=== PATIENT | female | born 1945 | race Caucasian/White ===

== ENCOUNTER 2016-07-12 09:33 | Emergency (ER) | payer MEDICARE ==
[~2016-07-12 09:33] MED LIST: HYDR-3533 PO; LACT20SO4 PO; OXYC-103 PO; ZOFR8TAB4 PO
[2016-07-12 09:44] VITALS: BP 146/78; PULSE 84; RESP 17; TEMP 98.5; O2SAT 98
[2016-07-12] MEDS ORDERED: HYDR1SOL3 PO (09:50)
[2016-07-12] MEDS ORDERED: GABA300C5 PO (09:50)
[2016-07-12 09:52] VITALS: O2SAT 98
[2016-07-12 09:55] VITALS: BP_SYST 107; BP_SYST 118; BP_DIAS 66; BP_DIAS 72
[2016-07-12 09:59] LABS: BASOPHIL % 0.3 % (0.0-2.0); EOSINOPHIL # 0.3 TH/MM3 (0-0.4); EOSINOPHIL % 3.1 % (0.0-4.0); HEMATOCRIT 39.6 % (35.0-46.0); HEMO FLAGS DIFF FINAL; LYMPH % 27.1 % (9.0-44.0); LYMPHOCYTE # 2.9 TH/MM3 (1.0-4.8); MEAN CORPUSCULAR HEMOGLOBIN 31.1 PG (27.0-34.0); MEAN CORPUSCULAR HGB CONC 33.1 % (32.0-36.0); MONO % 5.1 % (0.0-8.0); NEUT % 64.4 % (16.0-70.0); PLATELET COUNT 323 TH/MM3 (150-450); RED BLOOD COUNT 4.21 MIL/MM3 (4.00-5.30); RED CELL DISTRIBUTION WIDTH 13.3 % (11.6-17.2); WHITE BLOOD COUNT 10.7 TH/MM3 (4.0-11.0)
[2016-07-12] MEDS ORDERED: SODIUM CHLORIDE 0.9% FLUSH 5 ML FLUSH IVF PRN (10:00)
[2016-07-12 10:12] LABS: APTT (PATIENT) 25.7 SEC (24.3-30.1); PROTHROMBIN TIME - PATIENT 10.5 SEC (9.8-11.6)
[2016-07-12 10:15] LABS: BICARBONATE 28.7 MEQ/L (21.0-32.0); MAGNESIUM 2.3 MG/DL (1.5-2.5)
--- NOTE | 2016-07-12 10:15 | RADHPO ---
EXAM DATE/TIME: 07/12/2016 09:56 [facility] COMPARISON: [id number] PLCMT, POWERPORT, W US, RIGHT, June 28, 2015, 8:52. CT SIMULATION, June 08, 2015 , 15:44. CHEST SINGLE AP, June 01, 2015, 12:36. INDICATIONS : Chest pain. MEDICAL HISTORY : Carcinoma, lung. Carcinoma, bladder. Gastroesophageal reflux disease. Hiatial hernia. Chemotherap y. SURGICAL HISTORY : Hysterectomy. Infusaport. Total left shoulder. Bladder tumor removal. ENCOUNTER: Initial ACUITY: 1 day PAIN SCORE: 6/10 LOCATION: chest FINDINGS: AP upright portable view of the chest at demonstrates a stable appearance of a right-sided central li ne. There has been interval total left shoulder arthroplasty. The lungs are adequately inflated without evidence of pneumothorax. There are persistent rounded mass is identified in the right lower lung and left upper lung. The exam appears grossly unchanged as com pared to the exam of June 28, 2015. No acute abnormality noted. CONCLUSION: Bilateral lung masses, no evidence of acute abnormality within the thorax. Alena Strickland MD on July 12, 2016 at 10:12 Board Certified Radiologist. This report was verified electronically.
[2016-07-12 10:16] LABS: ANION GAP 8 MEQ/L (5-15); BLOOD UREA NITROGEN 14 MG/DL (7-18); CHLORIDE 102 MEQ/L (98-107); POTASSIUM 3.7 MEQ/L (3.5-5.1); SODIUM (NA) 139 MEQ/L (136-145)
[2016-07-12 10:18] LABS: GLOMERULAR FILTRATION RATE 82 ML/MIN (>89)
[2016-07-12 10:20] LABS: ALT (GPT) 34 U/L (10-53); TOTAL BILIRUBIN ADULT 0.5 MG/DL (0.2-1.0)
[2016-07-12 10:21] LABS: ALKALINE PHOSPHATASE 112 U/L (45-117)
--- NOTE | 2016-07-12 10:22 | PD ---
HPI Chief Complaint: Chest Pain Time Seen by Provider: 09:37 Travel History International Travel<30 days: No Contact w/Intl Traveler<30days: No Traveled to known affect area: No History of Present Illness HPI 71-year-old female presents with central sharp chest pain that started while she was vacuuming shortly prior to arrival. She states that it improved some at rest but is still present. She states she currently is getting chemotherapy and last got it 1 week ago Sunday. She states that 2 weeks ago she had a bacterial infection and that when they checked an x-ray at that time she also had increasing size of her tumor so her next chemotherapy they're going to adjust. She states Dr. Brown's her oncologist. She states the cancer originally was in her bladder and has now spread to her lung and shoulder. She denies other metastases disease that she is aware of. She denies any current symptoms other than chronic cough. Quality pain is sharp. Severity is moderate. Pain is worse with movement. She denies other modifying factors. PFSH Past Medical History Cancer: Yes (bladder/ LUNGS TUMORS) Cardiovascular Problems: No Chemotherapy: Yes (LAST SUNDAY) Diabetes: No Diminished Hearing: No Endocrine: No Gastrointestinal Disorders: No GERD: Yes Genitourinary: Yes (bladder tumor 2013 remission) Hepatitis: No Hiatal Hernia: Yes Hypertension: No Immune Disorder: No Implanted Vascular Access Dvce: Yes (PORT) Musculoskeletal: No Neurologic: No Psychiatric: No Reproductive: No Respiratory: No Immunizations Current: No Thyroid Disease: No Tetanus Vaccination: > 5 Years Influenza Vaccination: No Past Surgical History Abdominal Surgery: No AICD: No Cardiac Surgery: No Ear Surgery: No Endocrine Surgery: No Eye Surgery: No Genitourinary Surgery: Yes (bladder tumor removal) Gynecologic Surgery: Yes (hysterectomy 1977) Hysterectomy: Yes Joint Replacement: Yes (LEFT SHOULDER RODS) Neurologic Surgery: No Oral Surgery: No Pacemaker: No Thoracic Surgery: No Other Surgery: Yes (tumors from bladder removed) Social History Alcohol Use: No Tobacco Use: No Substance Use: No Allergies-Medications (Allergen,Severity, Reaction): Coded Allergies: Sulfa (Verified Adverse Reaction, Intermediate, NAUSEA, 07/12/16) Reported Meds & Prescriptions Reported Meds & Active Scripts Active Reported Hydrocodone-Acetaminophen Liq 7.5-325 Mg/15 Ml Soln 10 Ml PO BID PRN Gabapentin 300 Mg Cap 300 Mg PO TID Review of Systems Except as stated in HPI: all other systems reviewed are Neg Physical Exam Narrative GENERAL: Well-nourished, well-developed patient. SKIN: Warm and dry. HEAD: Normocephalic and atraumatic. EYES: No injection or drainage. ENT: No nasal drainage noted. NECK: Supple, trachea midline. CARDIOVASCULAR: Regular rate and rhythm RESPIRATORY: Breath sounds equal bilaterally. No accessory muscle use. GASTROINTESTINAL: Abdomen soft, non-tender, nondistended. EXTREMITIES: No edema. NEUROLOGICAL: Awake and alert. Motor and sensory grossly within normal limits. Normal speech. Data Data Last Documented VS Vital Signs Date Time Temp Pulse Resp B/P Pulse Ox O2 Delivery O2 Flow Rate FiO2 07/12/16 11:59 86 17 112/65 96 Room Air 07/12/16 09:44 98.5 Orders Electrocardiogram (07/12/16 09:48) B-Type Natriuretic Peptide (07/12/16 09:48) Ckmb (Isoenzyme) Profile (07/12/16 09:48) Complete Blood Count With Diff (07/12/16 09:48) Comprehensive Metabolic Panel (07/12/16 09:48) Magnesium (Mg) (07/12/16 09:48) Prothrombin Time / Inr (Pt) (07/12/16 09:48) Act Partial Throm Time (Ptt) (07/12/16 09:48) Troponin I (07/12/16 09:48) Chest, Single Ap (07/12/16 09:48) Ecg Monitoring (07/12/16 09:48) Bilateral Bp Monitoring (07/12/16 09:48) Iv Access Insert/Monitor (07/12/16 09:48) Oximetry (07/12/16 09:48) Sodium Chloride 0.9% Flush (Ns Flush) (07/12/16 10:00) Ct Pulmonary Angiogram (07/12/16 09:48) Iohexol 350 Inj (Omnipaque 350 Inj) (07/12/16 11:11) Electrocardiogram (07/12/16 12:50) Ckmb (Isoenzyme) Profile (07/12/16 12:50) Troponin I (07/12/16 12:50) Labs Laboratory Tests Test 07/12/16 07/12/16 09:50 13:05 White Blood Count 10.7 TH/MM3 Red Blood Count 4.21 MIL/MM3 Hemoglobin 13.1 GM/DL Hematocrit 39.6 % Mean Corpuscular Volume 94.0 FL Mean Corpuscular Hemoglobin 31.1 PG Mean Corpuscular Hemoglobin 33.1 % Concent Red Cell Distribution Width 13.3 % Platelet Count 323 TH/MM3 Mean Platelet Volume 7.1 FL Neutrophils (%) (Auto) 64.4 % Lymphocytes (%) (Auto) 27.1 % Monocytes (%) (Auto) 5.1 % Eosinophils (%) (Auto) 3.1 % Basophils (%) (Auto) 0.3 % Neutrophils # (Auto) 7.0 TH/MM3 Lymphocytes # (Auto) 2.9 TH/MM3 Monocytes # (Auto) 0.5 TH/MM3 Eosinophils # (Auto) 0.3 TH/MM3 Basophils # (Auto) 0.0 TH/MM3 CBC Comment DIFF FINAL Differential Comment Prothrombin Time 10.5 SEC Prothromb Time International 1.0 RATIO Ratio Activated Partial 25.7 SEC Thromboplast Time Sodium Level 139 MEQ/L Potassium Level 3.7 MEQ/L Chloride Level 102 MEQ/L Carbon Dioxide Level 28.7 MEQ/L Anion Gap 8 MEQ/L Blood Urea Nitrogen 14 MG/DL Creatinine 0.71 MG/DL Estimat Glomerular Filtration 82 ML/MIN Rate Random Glucose 105 MG/DL Calcium Level 9.3 MG/DL Magnesium Level 2.3 MG/DL Total Bilirubin 0.5 MG/DL Aspartate Amino Transf 16 U/L (AST/SGOT) Alanine Aminotransferase 34 U/L (ALT/SGPT) Alkaline Phosphatase 112 U/L Total Creatine Kinase 56 U/L 47 U/L Troponin I LESS THAN 0.02 LESS THAN 0.02 NG/ML NG/ML B-Type Natriuretic Peptide 16 PG/ML Total Protein 7.9 GM/DL Albumin 3.9 GM/DL MDM Medical Decision Making Medical Screen Exam Complete: Yes Emergency Medical Condition: Yes Medical Record Reviewed: Yes (pmh confirmed) Interpretation(s) EKG is limited by wandering baseline and shows sinus rhythm at 85 without STEMI criteria CBC & BMP Diagram Repeat EKG shows NSR, no ST elevation or depression, and no arrhythmias. No significant T-wave inversions. 07/12/16 09:50 Last 24 hours Impressions Chest X-Ray 07/12/16 0948 Signed Impressions: Service Date/Time: Tuesday, July 12, 2016 09:56 - CONCLUSION: Bilateral lung masses, no evidence of acute abnormality within the thorax. Alena Strickland MD CT Angiography 07/12/16 0948 Signed Impressions: Service Date/Time: Tuesday, July 12, 2016 11:02 - CONCLUSION: No evidence of PE. Multifocal pulmonary masses which appear grossly unchanged from prior exam.. Alena Strickland MD 2 cardiac markers are negative Differential Diagnosis Pleural effusion, PE, DE, musculoskeletal, pneumonia, enlarging mass.... Narrative Course Will check blood work, CT, EKG and reevaluate. Patient declines pain medication on initial exam ed workup no acute, will discuss with her oncologist patient agrees to repeat cardiac markers and if ok dc Patient denies any new complaints and states that they are feeling better. Patient happy with care, all questions answered. Patient knows that follow up is incumbent on them and to return to the emergency room immediately if new or worsening symptoms develop. Patient given strict return precautions, vitals reviewed and are normal, agrees to further workup as an outpatient. Physician Communication Physician Communication dr brown states to check one more set of cardiac markers and if ok, can dc with follow up in office Diagnosis Primary Impression: Chest pain Qualified Code: R07.9 - Chest pain, unspecified type Patient Instructions: General Instructions Additional Instructions: return as needed, follow with oncologist this week, take home pain medication as directed Med/Other Pt SpecificInfo: No Change to Meds Disposition: 01 DISCHARGE HOME Condition: Stable Chiquita De La Garza MD Jul 12, 2016 10:21
[2016-07-12 10:24] LABS: AST (GOT) 16 U/L (15-37)
[2016-07-12 10:29] LABS: CREATINE KINASE 56 U/L (26-192)
[2016-07-12] MEDS ORDERED: IOHEXOL 350 MG/ML 10 ML VIAL (for RAD DIAG) IV ONE (11:11)
--- NOTE | 2016-07-12 11:26 | RADHPO ---
EXAM DATE/TIME: 07/12/2016 11:02 [facility] COMPARISON: CT SIMULATION, June 08, 2015, 15:44. INDICATIONS : Sharp chest pain radiating to back. IV CONTRAST: 65 cc Omnipaque 350 (iohexol) IV RADIATION DOSE: 9.99 CTDIvol (mGy) MEDICAL HISTORY : Carcinoma, bladder. Carcinoma, lung. Hernia, hiatal. SURGICAL HISTORY : Hysterectomy. Bladder tumor removed. ENCOUNTER: Initial ACUITY: 1 day PAIN SCALE: 4/10 LOCATION: chest TECHNIQUE: Volumetric scanning of the chest was performed using a pulmonary embolism protocol MIP images were re constructed. Using automated exposure control and adjustment of the mA and/or kV according to patien t size, radiation dose was kept as low as reasonably achievable to obtain optimal diagnostic quality images. FINDINGS: PULMONARY ARTERIES: No filling defects are seen in the pulmonary arteries through the segmental level. LUNGS: Stable bilateral multiple perihilar pulmonary masses which appear grossly unchanged from prior exam. PLEURAE: There is no pleural thickening or pleural effusion. MEDIASTINUM: There is good visualization of the great vessels of the middle mediastinum. No evidence of mediastin al or hilar adenopathy/mass. MUSCULOSKELETAL: Within normal limits for patient age. MISCELLANEOUS: The visualized upper abdominal organs demonstrate no acute abnormality. CONCLUSION: No evidence of PE. Multifocal pulmonary masses which appear grossly unchanged from prior exam.. Alena Strickland MD on July 12, 2016 at 11:23 Board Certified Radiologist. This report was verified electronically.
[2016-07-12 11:59] VITALS: BP 112/65; PULSE 86; RESP 17; O2SAT 96
[2016-07-12 13:35] LABS: CREATINE KINASE 47 U/L (26-192)
[2016-07-12 13:53] VITALS: BP 113/67; PULSE 87; RESP 17; O2SAT 94
--- NOTE | 2016-07-13 21:21 | EKG ---
Date Performed: 07/12/2016 Time Performed: 12:51:58 PTAGE: 71 years EKG: Sinus rhythm Normal ECG PREVIOUS TRACING : 07/12/2016 09.38 DOCTOR: Rosalio Ha Interpretating Date/Time 07/13/2016 21:10:51
--- NOTE | 2016-07-13 21:29 | EKG ---
Date Performed: 07/12/2016 Time Performed: 09:38:24 PTAGE: 71 years EKG: Sinus rhythm Lateral T wave changes are nonspecific Borderline ECG NO PREVIOUS TRACING DOCTOR: Rosalio Ha Interpretating Date/Time 07/13/2016 21:14:29
== END 2016-07-12 14:10 | disposition home or self-care (01) ==
LOC: PHED 09:33
DX: R07.9 Chest pain, unspecified (principal); Z96.612 Presence of left artificial shoulder joint; Z79.899 Other long term (current) drug therapy; C79.51 Secondary malignant neoplasm of bone; C78.01 Secondary malignant neoplasm of right lung; C78.02 Secondary malignant neoplasm of left lung; C67.9 Malignant neoplasm of bladder, unspecified
CPT/HCPCS: 71010; 71275; 80053; 82550; 83735; 83880; 84484; 85025; 85610; 85730; 93005; 99285; Q9967

== ENCOUNTER → 2017-07-24 | Day surgery (SDC) | payer MEDICARE ==
[~2017-07-24] MED LIST changes: +DEXAMETHASONE SOD PHOS 4 MG/ML VIAL ONE; +EPINEPHrine HCL (1:1000) 1 MG/ML VIAL ONE; +GABA300C5 PO; -HYDR-3533 PO; +HYDR1SOL3 PO; -LACT20SO4 PO; +LACTATED RINGER'S 1,000 ML BAG IV ONE; +MIDAZOLAM HCL 2 MG/2 ML VIAL ONE; +MOXIFLOXACIN 0.5% OPHT SOLN 3 ML BTL ONE; +ONDANSETRON HCL 4 MG/2 ML VIAL IV PUSH ONE; -OXYC-103 PO; +PHENYLEPHRINE HCL 10% OPTH SOLN 5 ML BTL ONE; +PROPOFOL 200 MG/20 ML AMP IV ONE; +SODIUM CHLORIDE 0.9% INJ 10 ML ONE; +TETRACAINE 0.5% OPTH SOLN 15 ML BTL ONE; +TOBRAMYCIN/DEXAMETHASONE OPTH OINT 3.5 GM TUBE ONE; +TRIAMCINOLONE ACETONIDE 40 MG/ML VIAL ONE; -ZOFR8TAB4 PO; +ceFAZolin INJ 1,000 MG VIAL ONE; +prednisoLONE ACETATE 1% OPHT SUSP 5 ML BTL ONE
--- NOTE | 2017-07-27 08:17 | TN ---
cc: MAHESH WOODARD MD DATE OF SURGERY 07/24/2017 PREOPERATIVE DIAGNOSIS Full-thickness macular hole right eye. POSTOPERATIVE DIAGNOSIS Full-thickness macular hole right eye. PROCEDURE Pars plana vitrectomy, macular hole closure, removal of internal limiting membrane/epiretinal membrane, air-fluid exchange, insertion of 18% SF6 gas right eye. COMPLICATIONS None. BLOOD LOSS Less than [address] Botello general. INDICATIONS FOR PROCEDURE This patient was found to have significant vision loss with a full-thickness macular hole of her right eye. The patient elected for surgical correction. PROCEDURE NOTE After informed consent was obtained, the patient was brought to the operating room. General anesthesia was established. The right eye was prepped and draped in sterile fashion with Betadine in the conjunctival fornix. A three-port pars plana vitrectomy was established with self-retaining infusion cannula. Core vitreous was evacuated and vitreous traction relieved. The ILM was highlighted with ICG and removed with ILM forceps. Scleral depression examination revealed no peripheral retinal holes, tears or detachments. Air-fluid exchange was carried out and macular hold closed under direct visualization. 18% SF6 gas was instilled. Trocars were removed and sclerotomies closed. Subconjunctival injection of Ancef and dexamethasone were given. The eye was patched with Tobramycin ointment. The patient was brought to the recovery room in stable condition. She will continue followup with [facility] for her postoperative care. Mahesh Woodard MD KW/SSB /5:29 PM /7:51 AM
== END | disposition home or self-care (01) ==
LOC: ESDC 09:06
PROVIDERS: ATTEND Ophthalmology
DX: H35.341 Macular cyst, hole, or pseudohole, right eye (principal)
CPT/HCPCS: 00145; 67042; J0171; J0690; J1100; J2250; J2405; J3010; J7120; J3301